=== PATIENT | male | born 1975 | race Asian ===

== ENCOUNTER 2020-01-27 22:40 | Inpatient (IN) | payer MEDICAID, OTHER ==
[~2020-01-27] VITALS: Ht 180.3 cm; Wt 77.2 kg
[2020-01-27 23:29] LABS: Basophils # (auto) 0.1 10 ^3/uL (0-0.2); Basophils % (auto) 0.8 % (0.0-2.0); Eosinophils # (auto) 0.2 10 ^3/uL (0-0.8); Eosinophils % (auto) 1.3 % (0.0-7.0); Hematocrit 50.5 % (41.0-53.0); Hemoglobin 16.4 g/dL (13.5-17.5); Lymphocytes # (auto) 3.5 10 ^3/uL (0.4-5.4); Lymphocytes % (auto) 29.8 % (10.0-50.0); Mean Corpuscular Hemoglobin 30.3 pg (28.0-32.0); Mean Corpuscular Hgb Conc. 32.6 g/dL (32.0-36.0); Monocytes # (auto) 0.5 10 ^3/uL (0-1.3); Monocytes % (auto) 4.6 % (0.0-12.0); Neutrophils # (auto) 7.6 10 ^3/uL (1.6-8.6); Neutrophils % (auto) 63.5 % (37.0-80.0); Platelet Count (auto) 264 10^3/uL (140-450); Red Blood Cells 5.43 10^6/uL (4.5-5.90); Red Cell Distribution Width 14.5 % (11.8-14.3); White Blood Cell 11.9 10^3/uL (4.4-10.8)
[2020-01-27] MEDS ORDERED: DIGOXIN (250MCG/ML) 2 ML AMPULE IV ONE (23:30)
[2020-01-27 23:45] LABS: INR 0.93 (0.9-1.15); Partial Thromboplastin Time 22.8 sec (23.64-32.05)
[2020-01-27 23:49] LABS: Alanine Aminotransferase 31 U/L (16-61); Albumin 3.6 g/dL (3.4-5.0); Anion Gap 6 (5-15); Aspartate Aminotransferase 13 U/L (15-37); BUN/Creatinine Ratio 15.7; Blood Urea Nitrogen 17 mg/dL (7-18); Calcium 8.6 mg/dL (8.5-10.1); Carbon Dioxide 26 mmol/L (21-32); Chloride 109 mmol/L (98-107); GFR African American 96 mL/min; GFR Non-African American 79 mL/min; Glucose 156 mg/dL (74-106); Potassium 3.1 mmol/L (3.5-5.1); Sodium 141 mmol/L (136-145)
[2020-01-27 23:53] LABS: Alkaline Phosphatase 81 U/L (45-117); Bilirubin, Total 0.3 mg/dL (0.2-1.0); Total Protein 7.1 g/dL (6.4-8.2)
[2020-01-28] MEDS ORDERED: cloNIDine HCL 0.1 MG TAB PO ONE (00:15)
[2020-01-28] MEDS ORDERED: MORPHINE SULF INJ 2 MG/ML SYRINGE 1ML IV PRN (03:30)
[2020-01-28] MEDS ORDERED: DEXTROSE (50%) 50ML SYRG IV PRN (03:30)
[2020-01-28] MEDS ORDERED: ONDANSETRON HCL 4 MG/2 ML VIAL IV PRN (03:30)
[2020-01-28] MEDS ORDERED: NITROGLYCERIN 0.4 MG SL TAB SL PRN ×2 (03:30)
[2020-01-28] MEDS ORDERED: ACETAMINOPHEN 325 MG TAB PO PRN (03:30)
[2020-01-28] MEDS ORDERED: MORPHINE SULFATE 4 MG/ML SYR/VIAL IV PRN (03:30)
[2020-01-28] MEDS: InsuLIN REG 1unit/0.01ml Soln (100units/ml) SC SCH ×3 (04:00→12:00)
[2020-01-28] MEDS ORDERED: ENOXAPARIN SOD 80 MG/0.8ML SYRINGE SC SCH ×2 (04:00→16:00)
[2020-01-28] MEDS: POTASSIUM CHL 20MEQ/100ML 100 ML IV SCH ×2 (04:18→05:11)
[2020-01-28] MEDS: ACCU-CHEK COMFORT CURVE STRIP VI SCH ×3 (04:27→12:46)
[2020-01-28] MEDS: SODIUM CHLORIDE 0.9% 1,000 ML IV SCH ×2 (04:28→16:18)
[2020-01-28 04:35] VITALS: BP 120/83
--- NOTE | 2020-01-28 04:35 | NUR ---
Telemetry admit from ER LUCIANA WILSON admitted to Telemetry unit, oriented to MILVIA ROBLES, RN primary RN, unit, room, bed, and unit policies regarding patient care and visiting hours. Patient now on continuous telemetry monitoring, tele box # 70 and telemetry reading on arrival to unit is sinus rhythm at 70 beats per minute. Patient placed on bedside oxygen at 5 liters via nasal cannula, weighed by bedscale and encouraged to call if they need something. All questions and concerns addressed, patient verbalized understanding. Bed in lowest locked position, side rails up x2, call light within reach. Will round every hour and as needed and continue to monitor. Patient denying chest pain at this time, instructed to call nursing staff if chest pain reoccurs, patient verbalized understanding. Will continue to monitor.
[2020-01-28 05:00] VITALS: BP 120/83
[2020-01-28] MEDS: cloNIDine HCL 0.1 MG TAB PO SCH ×4 (05:11→22:50)
--- NOTE | 2020-01-28 07:15 | NUR ---
Closing Note Patient lying in bed, eyes closed, respirations even and unlabored, appears asleep. Patient awakens to name and touch. Bed in lowest locked position, side rails up x2, call light within reach. No s/s of distress. Care endorsed to dayshift RN.
--- NOTE | 2020-01-28 07:17 | NUR ---
Opening Shift Note: Assumed care of patient, awake and alert. No S/S of distress/SOB or pain. Bed in lowest locked position, side rails up x 2, call light within reach. Patient instructed on POC and to call for assist PRN, will continue to monitor for changes Q1hr and PRN.
[2020-01-28 09:00] VITALS: BP 117/72
[2020-01-28 09:31] LABS: Basophils # (auto) 0.1 10 ^3/uL (0-0.2); Basophils % (auto) 0.6 % (0.0-2.0); Eosinophils # (auto) 0.1 10 ^3/uL (0-0.8); Eosinophils % (auto) 0.7 % (0.0-7.0); Hematocrit 45.9 % (41.0-53.0); Hemoglobin 15.1 g/dL (13.5-17.5); Lymphocytes # (auto) 2.1 10 ^3/uL (0.4-5.4); Lymphocytes % (auto) 21.3 % (10.0-50.0); Mean Corpuscular Hemoglobin 30.7 pg (28.0-32.0); Mean Corpuscular Hgb Conc. 32.9 g/dL (32.0-36.0); Mean Corpuscular Volume 93.3 fL (80.0-100.0); Monocytes # (auto) 0.5 10 ^3/uL (0-1.3); Neutrophils % (auto) 72.4 % (37.0-80.0); Platelet Count (auto) 233 10^3/uL (140-450); Red Blood Cells 4.92 10^6/uL (4.5-5.90); Red Cell Distribution Width 14.4 % (11.8-14.3); White Blood Cell 9.7 10^3/uL (4.4-10.8)
[2020-01-28 09:53] LABS: Calcium 7.9 mg/dL (8.5-10.1); Potassium 4.1 mmol/L (3.5-5.1)
[2020-01-28] MEDS: CLOPIDOGREL BISULFATE 75 MG TAB PO SCH (09:58)
[2020-01-28 09:59] LABS: BUN/Creatinine Ratio 21.2
[2020-01-28] MEDS: LISINOPRIL 20 MG TAB PO SCH (09:59)
[2020-01-28] MEDS: CARVEDILOL 3.125 MG TAB PO SCH ×2 (09:59→22:50)
[2020-01-28] MEDS: DOCUSATE SOD 100 MG CAP PO SCH (10:00)
[2020-01-28] MEDS: ASPirin 81 mg TAB PO SCH (10:01)
--- NOTE | 2020-01-28 10:01 | NUR ---
CRITICAL LAB Critical trop- 4.84. Dr. Terrazas notified. New orders received, read back and verified.
[2020-01-28] MEDS ORDERED: ENOXAPARIN SOD 100 MG/1 ML SYRINGE SC ONE (10:15)
--- NOTE | 2020-01-28 10:18 | NUR ---
Patient resting in bed. No S/S of distress, SOB or pain at this time. Will continue to monitor.
--- NOTE | 2020-01-28 11:17 | NUR ---
DR. LEWIS: DR. JOHNSON AT BEDSIDE. DISCUSSED POC WITH PATIENT. PATIENT VERBALLY AGREED.
--- NOTE | 2020-01-28 12:12 | NUR ---
PER DR JOHNSON ORDERS EKG PERFORMED. READ BY DR JOHNSON. PATIENT TOLERATED WELL, NO PAIN AT THIS TIME. WILL CONTINUE TO MONITOR.
[2020-01-28 12:35] VITALS: BP 123/82
--- NOTE | 2020-01-28 12:55 | NUR ---
PATIENT PROVIDED SPECIMEN CUP FOR URINE SAMPLE
--- NOTE | 2020-01-28 13:15 | NUR ---
IV FLUIDS PATIENT ASKED TO BE UNHOOKED FROM FLUIDS AT THIS TIME.
--- NOTE | 2020-01-28 15:34 | NUR ---
CRITICAL LAB: - 6.13. DR. JOHNSON AWARE. DR. GIL AWARE. WILL CONTINUE TO MONITOR.
--- NOTE | 2020-01-28 15:42 | NUR ---
PAIN PATIENT STATES NO PAIN AT THIS TIME.
[2020-01-28 17:00] VITALS: BP_SYST 123; BP_SYST 130; BP_DIAS 75; BP_DIAS 82
--- NOTE | 2020-01-28 18:08 | NUR ---
URINE SAMPLE COLLECTED AND SENT TO LAB.
--- NOTE | 2020-01-28 19:15 | NUR ---
Opening Shift Note Assumed care of patient, awake and alert. No S/S of distress/SOB or pain. Bed in lowest locked position, side rails up 2, call light within reach. Instructed on POC and to call for assist PRN, will continue to monitor for changes Q1hr and PRN. Addendum: 01/29/20 at 0017 by MILVIA ROBLES RN RN CORRECTION: Time of note 19:21.
--- NOTE | 2020-01-28 19:21 | NUR ---
CLOSING NOTE: PATIENT RESTING IN BED. NO S/S OF DISTRESS, SOB, OR PAIN AT THIS TIME. CARE ENDORSED TO NOC RN.
[2020-01-28 22:00] VITALS: BP 140/93
--- NOTE | 2020-01-28 22:47 | NUR ---
Critical Troponin, 4.310, trending down. Per Dr. Terrazas's notes pigment and lacquer mixer Dr. Roberts aware of patient's critical tropnins. Will page release of information clerk hospitalist at specified time and in form release of information clerk MD.
[2020-01-28] MEDS: ATORVASTATIN 20 MG TAB PO SCH (22:50)
[2020-01-28] MEDS: ENOXAPARIN SOD 80 MG/0.8ML SYRINGE SC SCH (22:51)
[2020-01-29] VITALS (23 sets, daily range): BP systolic 113–153; BP diastolic 73–99
--- NOTE | 2020-01-29 | NUR ---
ground operations superintendent hospitalist paged for previously noted critical troponin level and for patient's request for nicotine patch. Awaiting call back at this time.
--- NOTE | 2020-01-29 00:28 | NUR ---
Return page from contract writer hospitalist Dr. Vinod Campos MD at this time, no new orders at this time. Will continue to monitor patient.
[2020-01-29 03:46] LABS: Alcohol, Urine < 3.0 mg/dL (0-5); Amphetamine Screen, Urine NEGATIVE (NEGATIVE); Barbiturate Scree,Urine NEGATIVE (NEGATIVE); Benzodiazephine Screen, Urine NEGATIVE (NEGATIVE); Cannabinoid Screen, Urine NEGATIVE (NEGATIVE); Cocaine Screen, Urine NEGATIVE (NEGATIVE); Opiate Scree,Urine NEGATIVE (NEGATIVE); Phencyclidine Screen, Urine NEGATIVE (NEGATIVE)
[2020-01-29] MEDS: cloNIDine HCL 0.1 MG TAB PO SCH ×4 (06:04→22:00)
[2020-01-29] MEDS: SODIUM CHLORIDE 0.9% 1,000 ML IV SCH ×2 (06:05→20:06)
--- NOTE | 2020-01-29 07:05 | NUR ---
Opening Shift Note: Assumed care of patient, awake and alert. No S/S of distress/SOB. Pain assessment 0/10. Side rails up x2, call light within reach, call light within reach. Patient instructed on POC and to call for assist PRN, will continue to monitor for changes Q1hr and PRN.
[2020-01-29] MEDS: ASPirin 81 mg TAB PO SCH (09:40)
[2020-01-29] MEDS: CLOPIDOGREL BISULFATE 75 MG TAB PO SCH (09:40)
[2020-01-29] MEDS: ENOXAPARIN SOD 80 MG/0.8ML SYRINGE SC SCH ×2 (09:40→21:39)
[2020-01-29] MEDS: LISINOPRIL 20 MG TAB PO SCH (09:41)
[2020-01-29] MEDS: CARVEDILOL 3.125 MG TAB PO SCH ×2 (09:41→21:40)
[2020-01-29] MEDS: DOCUSATE SOD 100 MG CAP PO SCH (09:41)
--- NOTE | 2020-01-29 10:34 | NUR ---
DR. LEWIS: DR. JOHNSON AT BEDSIDE. DISCUSSED POC WITH PATIENT. PATIENT VERBALLY AGREED. PATIENT MADE NPO AT THIS TIME.
[2020-01-29] MEDS ORDERED: ATOR20TA50 PO (11:53)
[2020-01-29] MEDS ORDERED: ASPI81CH43 PO (11:53)
--- NOTE | 2020-01-29 12:32 | NUR ---
Patient transported down to laborer golf course at this time. Patient is anxious, no S/S of SOB or pain at this time.
[2020-01-29] MEDS ORDERED: LIDOCAINE 2%HCL (LOCAL ANESTH.) INJ 20ML MDV ONE (12:47)
[2020-01-29] MEDS ORDERED: IOHEXOL 350 MG/ML 100ML IJ ONE ×2 (12:47→14:00)
[2020-01-29] MEDS ORDERED: MIDAZOLAM HCL 1MG/1ML-2 ML VIAL ONE (13:09)
[2020-01-29] MEDS ORDERED: fentaNYL CITRATE 100 MCG/2 ML VL ONE (13:09)
[2020-01-29] MEDS ORDERED: ANGIOMAX 250 MG VIAL IV ONE (13:09)
[2020-01-29] MEDS ORDERED: SODIUM CHL 0.9% 50 ML ONE (13:09)
[2020-01-29] MEDS ORDERED: METO25TA5 PO (13:50)
[2020-01-29] MEDS ORDERED: LISI-646 PO (13:50)
[2020-01-29] MEDS ORDERED: CLOPIDOGREL 300 MG TAB ONE (14:20)
[2020-01-29] MEDS ORDERED: hydrALAZINE HCL 20 MG/ML VL ONE (14:24)
[2020-01-29] MEDS ORDERED: NITROGLYCERIN 50MG/250ML 250 ML IV ONE (14:48)
[2020-01-29] MEDS ORDERED: cloNIDine HCL 0.1 MG TAB PO ONE (16:30)
[2020-01-29] MEDS ORDERED: NIFEdipine ER 30 MG TAB PO ONE (16:30)
[2020-01-29] MEDS ORDERED: NITROGLYCERIN 50MG/250ML 250 ML IV SCH (16:45)
--- NOTE | 2020-01-29 17:20 | NUR ---
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 RIGHT GROIN ACCESS WITH GAUZE AND TEGADERM DRESSING IN PLACE WITH NO BLEEDING AND SKIN AROUND DRESSING IS SOFT WITH NO S/S OF EDEMA. A/O X4. FOLLOWS SIMPLE COMMANDS. LUNGS CLEAR THROUGHOUT. O2 AT 2 L/M VIA NC WITH O2 SAT OF 100%. TELE SR 65. PT WITH C/O MIDSTERNAL CHEST PAIN. NON RADIATING, RATES 5/10. NITROGLYCERIN DRIP AT 5 MCG AND INCREASED TO 6 MCG. CONTINUE TO MONITOR PAIN LEVEL. USES URINAL TO VOID, NONE AT THIS TIME. PALPABLE PULSES TO ALL EXTREMITIES WITH NO EDEMA NOTED. CONTINUE TO MONITOR.
--- NOTE | 2020-01-29 17:20 | NUR ---
PT HAS ONE TIME ORDERS FOR PROCARDIA XL AND CLONIDINE, WERE HELD BY PATROL DRIVER RN, LUCIAN, PT VAGALED DOWN EARLIER. WILL CONTINUE TO MONITOR.
--- NOTE | 2020-01-29 17:51 | NUR ---
REPORT GIVEN TO CABIN OUTFITTER.
--- NOTE | 2020-01-29 18:15 | NUR ---
TITRATING NITROGLYCERIN DRIP FOR PAIN RELIEF. CHEST PAIN CURRENTLY 1/10 FOR PAIN UNDER BOTH ARMS AT CHEST LEVEL.
--- NOTE | 2020-01-29 19:32 | NUR ---
REPORT REPORT GIVEN TO AUDREY GIMENEZ RN.
--- NOTE | 2020-01-29 20:35 | NUR ---
no c/o pain this time.on nitro drip at 7mcg/ min
[2020-01-29] MEDS: ATORVASTATIN 20 MG TAB PO SCH (21:39)
--- NOTE | 2020-01-29 23:40 | NUR ---
BP is 87/47..nitrodrip was discontinued
[2020-01-30] VITALS (15 sets, daily range): BP systolic 90–131; BP diastolic 7–85
[2020-01-30] MEDS: cloNIDine HCL 0.1 MG TAB PO SCH ×2 (06:00)
[2020-01-30] MEDS: SODIUM CHLORIDE 0.9% 1,000 ML IV SCH (06:08)
--- NOTE | 2020-01-30 06:19 | NUR ---
refused bath this am , he said its cold
--- NOTE | 2020-01-30 07:30 | NUR ---
REPORT REPORT RECEIVED FROM AMMY RNAUDREY. BEDSIDE CHECK DONE. PT ASLEEP WITH RESPIRATIONS EVEN AND UNLABORED. VSS. CONTINUE TO MONITOR.
--- NOTE | 2020-01-30 08:10 | NUR ---
ASSESSMENT PT AWAKE AND A/O X4. ABLE TO REPOSITION SELF IN BED. FOLLOWS SIMPLE COMMANDS. LUNGS CLEAR THROUGHOUT. PT ON ROOM AIR WITH O2 SAT OF 99%. TELE SB 54. PALPABLE PULSES TO ALL EXTREMITIES. RIGHT FEMORAL ANGIOGRAM SITE WITH GAUZE AND TEGADERM DRESSING. AREA IS SOFT TO THE TOUCH WITH NO BLEEDING AND SLIGHT BRUISE NOTED. SKIN IS CLEAR OTHERWISE. DENIES ANY PAIN OR SOB. ABD SOFT WITH + BOWEL SOUNDS. ASSISTED UP TO THE TOILET WHERE PT VOIDED INTO THE TOILET. PT BACK TO BED AND SERVED BREAKFAST.CONTINUE TO MONITOR,
[2020-01-30] MEDS ORDERED: NIFEdipine ER 30 MG TAB PO SCH (10:00)
[2020-01-30] MEDS: DOCUSATE SOD 100 MG CAP PO SCH (10:00)
[2020-01-30] MEDS: ENOXAPARIN SOD 80 MG/0.8ML SYRINGE SC SCH (10:15)
--- NOTE | 2020-01-30 10:15 | NUR ---
PT GIVEN SCHEDULED MEDS. DENIES ANY PAIN
[2020-01-30] MEDS: LISINOPRIL 20 MG TAB PO SCH (10:16)
[2020-01-30] MEDS: ASPirin 81 mg TAB PO SCH (10:16)
[2020-01-30] MEDS: CLOPIDOGREL BISULFATE 75 MG TAB PO SCH (10:16)
[2020-01-30 10:32] LABS: Basophils # (auto) 0.1 10 ^3/uL (0-0.2); Basophils % (auto) 1.2 % (0.0-2.0); Eosinophils # (auto) 0.1 10 ^3/uL (0-0.8); Eosinophils % (auto) 0.5 % (0.0-7.0); Hematocrit 44.2 % (41.0-53.0); Hemoglobin 14.8 g/dL (13.5-17.5); Mean Corpuscular Hemoglobin 30.9 pg (28.0-32.0); Mean Corpuscular Hgb Conc. 33.6 g/dL (32.0-36.0); Mean Corpuscular Volume 92.1 fL (80.0-100.0); Monocytes # (auto) 0.5 10 ^3/uL (0-1.3); Monocytes % (auto) 4.9 % (0.0-12.0); Neutrophils # (auto) 7.9 10 ^3/uL (1.6-8.6); Neutrophils % (auto) 74.4 % (37.0-80.0); Platelet Count (auto) 235 10^3/uL (140-450); Red Blood Cells 4.79 10^6/uL (4.5-5.90); Red Cell Distribution Width 14.3 % (11.8-14.3); White Blood Cell 10.7 10^3/uL (4.4-10.8)
[2020-01-30 10:52] LABS: Calcium 8.2 mg/dL (8.5-10.1); Potassium 3.6 mmol/L (3.5-5.1)
[2020-01-30 10:57] LABS: Albumin 2.9 g/dL (3.4-5.0); BUN/Creatinine Ratio 16.9; Bilirubin, Total 0.4 mg/dL (0.2-1.0); Total Protein 5.6 g/dL (6.4-8.2)
[2020-01-30] MEDS ORDERED: NITR0.4S29 SL (13:48)
[2020-01-30] MEDS ORDERED: NIFE1TAB31 PO (13:48)
[2020-01-30] MEDS ORDERED: CLOP75TA28 PO (13:48)
--- NOTE | 2020-01-30 14:10 | NUR ---
MD VISIT PT SEEN AND EXAMINED BY DR JOHNSON. SHE SPOKE WITH DR GIL WHO OKAYED THE PT FOR DISCHARGE. DR JOHNSON SENT THE PRESCRIPTIONS TO [facility] TO BE FILLED AND GIVEN TO PT AT DISCHARGE.
[2020-01-30] MEDS ORDERED: PANT40TA2 PO (14:16)
[2020-01-30] MEDS ORDERED: PANTOPRAZOLE 40 MG TAB PO ONE (14:30)
[2020-01-30] MEDS ORDERED: MORPHINE SULF INJ 2 MG/ML SYRINGE 1ML IV PRN (14:45)
--- NOTE | 2020-01-30 16:50 | NUR ---
DISCHARGE INSTRUCTIONS REVIEWED ALL DISCHARGE INSTRUCTIONS WITH PT. HE EXPRESSED UNDERSTANDING.
--- NOTE | 2020-01-30 17:05 | NUR ---
Discharge Pt has been given all discharge instructions and I answered all questions. He expressed understanding. Escorted pt to [facility] in the hospital lobby. There he picked up his prescriptions. Pharmacist earlier called and stated that they are submitting a TAR for the ordered aspirin and atorvastatin, and it could take as long as 1 -7 days for them to be approved. Called and notified Dr Terrazas and she told me to contact the inpatient pharmacy and have them dispense 10 tablets of Atorvastatin and have pt purchase Aspirin 81 mg over the counter. Spoke with [facility] pharmacist and he stated the pharmacy is not allowed to do that. He suggested I contact [facility]. The pharmacist at [facility] stated that she would be able to dispense the pt 4 tablets of Atorvastatin. Upon arriving at [facility] , pt was given his ordered meds, he purchased a bottle of Aspirin 81 mg tablets and was given 4 tablets of Atorvastatin. They verified his contact phone number and stated that they would contact him regarding the remainder of his Atorvastatin once it is approved by his insurance. Pt waiting in hospital lobby with his friend, for his ride.
== END 2020-01-30 17:08 | disposition home or self-care (01) | DRG 174 ==
LOC: ER 22:44 → TELE-WESTW 22:45 → ICU WEST 01-29 17:21
PROVIDERS: ADMIT Hospitalist; ATTEND Internal Medicine
PROC: 027034Z Dilation of Coronary Artery, One Artery with Drug-eluting Intraluminal Device, Percutaneous Approach (ICD-10-PCS; principal; 2020-01-29)
PROC: 4A023N7 Measurement of Cardiac Sampling and Pressure, Left Heart, Percutaneous Approach (ICD-10-PCS; 2020-01-29)
PROC: B2111ZZ Fluoroscopy of Multiple Coronary Arteries using Low Osmolar Contrast (ICD-10-PCS; 2020-01-29)
PROC: B2151ZZ Fluoroscopy of Left Heart using Low Osmolar Contrast (ICD-10-PCS; 2020-01-29)
DX: I21.4 Non-ST elevation (NSTEMI) myocardial infarction (principal); I48.91 Unspecified atrial fibrillation; I16.0 Hypertensive urgency; E78.5 Hyperlipidemia, unspecified; R00.1 Bradycardia, unspecified; Z72.0 Tobacco use
CPT/HCPCS: 36415; 70450; 71045; 80048; 80053; 80061; 80307; 82962; 83036; 83880; 84484; 85025; 85610; 85730; 86850; 86900; 86901; 87081; 92928; 93005; 93306; 93458; 96372; 96374; 99152; 99153; C1874; G0378; J2250; J2405; J3480

== ENCOUNTER 2020-10-14 07:43 | Inpatient (IN) | payer MEDICAID ==
[~2020-10-14] VITALS: Ht 182.9 cm; Wt 82.1 kg
[~2020-10-14 07:43] MED LIST: ASPI81CH43 PO; ATOR20TA50 PO; CLOP75TA28 PO; LISI-646 PO; NIFE1TAB31 PO; NITR0.4S29 SL; PANT40TA2 PO
[2020-10-14 08:39] LABS: Urine Bacteria MOD /hpf (None Seen); Urine Blood 3+ /uL (Negative); Urine Mucus FEW (None Seen); Urine Specific Gravity 1.031 (1.001-1.035); Urine WBC 6 /hpf (0 - 3)
[2020-10-14 10:16] LABS: Basophils # (auto) 0.1 10 ^3/uL (0-0.2); Basophils % (auto) 0.3 % (0.0-2.0); Eosinophils # (auto) 0 10 ^3/uL (0-0.8); Eosinophils % (auto) 0.1 % (0.0-7.0); Hematocrit 50.5 % (41.0-53.0); Hemoglobin 16.6 g/dL (13.5-17.5); Lymphocytes # (auto) 1.2 10 ^3/uL (0.4-5.4); Lymphocytes % (auto) 7.3 % (10.0-50.0); Mean Corpuscular Hemoglobin 30.4 pg (28.0-32.0); Mean Corpuscular Hgb Conc. 32.9 g/dL (32.0-36.0); Mean Corpuscular Volume 92.4 fL (80.0-100.0); Monocytes # (auto) 0.5 10 ^3/uL (0-1.3); Monocytes % (auto) 2.8 % (0.0-12.0); Neutrophils # (auto) 15.3 10 ^3/uL (1.6-8.6); Neutrophils % (auto) 89.5 % (37.0-80.0); Nucleated Red Blood Cells % 0.1 %; Platelet Count (auto) 315 10^3/uL (140-450); Red Blood Cells 5.46 10^6/uL (4.5-5.90); Red Cell Distribution Width 13.7 % (11.8-14.3); White Blood Cell 17.1 10^3/uL (4.4-10.8)
[2020-10-14 12:17] LABS: Albumin 3.8 g/dL (3.4-5.0); BUN/Creatinine Ratio 23.2; Bilirubin, Total 0.3 mg/dL (0.2-1.0); Calcium 8.6 mg/dL (8.5-10.1); Potassium 3.5 mmol/L (3.5-5.1); Total Protein 7.2 g/dL (6.4-8.2)
[2020-10-14] MEDS ORDERED: ONDANSETRON HCL 4 MG/2 ML VIAL IV ONE (13:15)
[2020-10-14] MEDS ORDERED: KETOROLAC TROMETH 30 MG/ML 1ML VIAL IV ONE (13:15)
[2020-10-14] MEDS ORDERED: TAMSULOSIN HYDROCHLORIDE 0.4 MG CAP PO ONE (13:15)
[2020-10-14] MEDS ORDERED: SODIUM CHLORIDE 0.9% 1,000 ML IV ONE ×2 (13:15)
[2020-10-14] MEDS ORDERED: DOCUSATE SOD 100 MG CAP PO PRN (15:45)
[2020-10-14] MEDS ORDERED: MORPHINE SULF INJ 2 MG/ML SYRINGE 1ML IV PRN (15:45)
[2020-10-14] MEDS ORDERED: ACETAMINOPHEN 325 MG TAB PO PRN (15:45)
[2020-10-14] MEDS ORDERED: NIFE1TAB30 PO (16:45)
[2020-10-14] MEDS ORDERED: MET25T PO (16:45)
[2020-10-14] MEDS: HYDROcodone-ACET 5/325MG TAB PO PRN (18:56)
[2020-10-14 20:00] VITALS: BP 135/85
[2020-10-14 21:36] VITALS: BP 135/85
[2020-10-15] MEDS: METOPROLOL TARTRATE 25 MG TAB PO SCH ×3 (01:56→21:46)
[2020-10-15] MEDS: levoFLOXacin 500MG 100 ML IV SCH ×2 (01:56→09:29)
[2020-10-15] MEDS: SODIUM CHLORIDE 0.9% 1,000 ML IV SCH ×3 (01:56→21:45)
[2020-10-15 05:00] VITALS: BP 150/99
[2020-10-15 06:15] LABS: Basophils # (auto) 0.1 10 ^3/uL (0-0.2); Basophils % (auto) 0.4 % (0.0-2.0); Eosinophils # (auto) 0 10 ^3/uL (0-0.8); Eosinophils % (auto) 0.2 % (0.0-7.0); Hematocrit 46.4 % (41.0-53.0); Hemoglobin 15.2 g/dL (13.5-17.5); Lymphocytes # (auto) 1.1 10 ^3/uL (0.4-5.4); Mean Corpuscular Hemoglobin 29.9 pg (28.0-32.0); Mean Corpuscular Hgb Conc. 32.7 g/dL (32.0-36.0); Mean Corpuscular Volume 91.5 fL (80.0-100.0); Monocytes % (auto) 7.1 % (0.0-12.0); Neutrophils # (auto) 11.9 10 ^3/uL (1.6-8.6); Neutrophils % (auto) 84.3 % (37.0-80.0); Platelet Count (auto) 279 10^3/uL (140-450); Red Blood Cells 5.07 10^6/uL (4.5-5.90); Red Cell Distribution Width 13.9 % (11.8-14.3); White Blood Cell 14.1 10^3/uL (4.4-10.8)
[2020-10-15] MEDS: HCTZ 25 MG TAB PO SCH ×2 (06:51→09:29)
[2020-10-15 07:06] LABS: Potassium 3.3 mmol/L (3.5-5.1)
[2020-10-15 07:20] LABS: BUN/Creatinine Ratio 17.4; Calcium 8.2 mg/dL (8.5-10.1)
[2020-10-15 08:00] VITALS: BP 139/98
[2020-10-15] MEDS: ASPirin 81 mg TAB PO SCH (09:29)
[2020-10-15] MEDS: CLOPIDOGREL BISULFATE 75 MG TAB PO SCH (09:30)
[2020-10-15] MEDS: NIFEdipine ER 30 MG TAB PO SCH (09:31)
[2020-10-15] MEDS: PANTOPRAZOLE 40 MG TAB PO SCH (09:41)
[2020-10-15 12:00] VITALS: BP 136/99
[2020-10-15] MEDS ORDERED: SODIUM CHLORIDE 0.9% 1,000 ML IV ONE ×2 (13:45→17:45)
[2020-10-15 16:59] VITALS: BP 135/98
[2020-10-15] MEDS ORDERED: POTASSIUM EFFERVESENT TAB 25 MEQ PO ONE (17:45)
[2020-10-15 18:29] LABS: BUN/Creatinine Ratio 16.5; Calcium 8.5 mg/dL (8.5-10.1); Potassium 3.9 mmol/L (3.5-5.1)
[2020-10-15] MEDS: ATORVASTATIN 20 MG TAB PO SCH (21:45)
[2020-10-15 22:00] VITALS: BP 140/93
[2020-10-16] MEDS: HYDROcodone-ACET 5/325MG TAB PO PRN ×3 (03:03→21:45)
[2020-10-16] MEDS: hydrALAZINE HCL 20 MG/ML VL IV PRN ×2 (04:39→09:41)
[2020-10-16 05:00] VITALS: BP 155/105
[2020-10-16 06:39] VITALS: BP 138/91
[2020-10-16] MEDS: SODIUM CHLORIDE 0.9% 1,000 ML IV SCH ×4 (07:00→21:43)
[2020-10-16 07:10] LABS: Basophils # (auto) 0 10 ^3/uL (0-0.2); Basophils % (auto) 0.2 % (0.0-2.0); Eosinophils # (auto) 0 10 ^3/uL (0-0.8); Eosinophils % (auto) 0.3 % (0.0-7.0); Hematocrit 47.7 % (41.0-53.0); Hemoglobin 15.5 g/dL (13.5-17.5); Lymphocytes # (auto) 1.1 10 ^3/uL (0.4-5.4); Lymphocytes % (auto) 8.8 % (10.0-50.0); Mean Corpuscular Hemoglobin 29.9 pg (28.0-32.0); Mean Corpuscular Hgb Conc. 32.5 g/dL (32.0-36.0); Mean Corpuscular Volume 91.9 fL (80.0-100.0); Monocytes # (auto) 0.9 10 ^3/uL (0-1.3); Monocytes % (auto) 7.4 % (0.0-12.0); Neutrophils # (auto) 10.4 10 ^3/uL (1.6-8.6); Neutrophils % (auto) 83.3 % (37.0-80.0); Platelet Count (auto) 276 10^3/uL (140-450); Red Blood Cells 5.19 10^6/uL (4.5-5.90); Red Cell Distribution Width 13.9 % (11.8-14.3); White Blood Cell 12.5 10^3/uL (4.4-10.8)
[2020-10-16 07:25] LABS: Calcium 8.7 mg/dL (8.5-10.1); Magnesium 2.2 mg/dL (1.6-2.6); Potassium 3.6 mmol/L (3.5-5.1)
[2020-10-16 07:27] LABS: BUN/Creatinine Ratio 17.4
[2020-10-16 07:33] LABS: INR 0.95 (0.9-1.15); Partial Thromboplastin Time 28.2 sec (23.0-31.2)
[2020-10-16 09:00] VITALS: BP 152/111
[2020-10-16] MEDS ORDERED: TAMSULOSIN HYDROCHLORIDE 0.4 MG CAP PO ONE (09:00)
[2020-10-16] MEDS: ASPirin 81 mg TAB PO SCH (09:39)
[2020-10-16] MEDS: NIFEdipine ER 30 MG TAB PO SCH (09:40)
[2020-10-16] MEDS: METOPROLOL TARTRATE 25 MG TAB PO SCH ×2 (09:40→21:44)
[2020-10-16] MEDS: PANTOPRAZOLE 40 MG TAB PO SCH (09:40)
[2020-10-16] MEDS: CLOPIDOGREL BISULFATE 75 MG TAB PO SCH (09:40)
[2020-10-16] MEDS: levoFLOXacin 500MG 100 ML IV SCH (09:41)
[2020-10-16 13:00] VITALS: BP 144/88
[2020-10-16 17:00] VITALS: BP 134/91
[2020-10-16] MEDS ORDERED: TAMSULOSIN HYDROCHLORIDE 0.4 MG CAP PO SCH (18:00)
[2020-10-16] MEDS: ATORVASTATIN 20 MG TAB PO SCH (21:43)
[2020-10-16 22:00] VITALS: BP 117/80
[2020-10-17] MEDS: SODIUM CHLORIDE 0.9% 1,000 ML IV SCH ×4 (02:36→15:00)
[2020-10-17 05:00] VITALS: BP 147/98
[2020-10-17 09:00] VITALS: BP 141/101
[2020-10-17] MEDS: levoFLOXacin 500MG 100 ML IV SCH (10:13)
[2020-10-17] MEDS: NIFEdipine ER 30 MG TAB PO SCH (10:13)
[2020-10-17] MEDS: METOPROLOL TARTRATE 25 MG TAB PO SCH (10:13)
[2020-10-17] MEDS: ASPirin 81 mg TAB PO SCH (10:14)
[2020-10-17] MEDS: CLOPIDOGREL BISULFATE 75 MG TAB PO SCH (10:14)
[2020-10-17] MEDS: PANTOPRAZOLE 40 MG TAB PO SCH (10:14)
[2020-10-17 10:37] LABS: Basophils # (auto) 0.1 10 ^3/uL (0-0.2); Basophils % (auto) 1.2 % (0.0-2.0); Eosinophils # (auto) 0.1 10 ^3/uL (0-0.8); Eosinophils % (auto) 0.4 % (0.0-7.0); Hematocrit 46.9 % (41.0-53.0); Hemoglobin 15.5 g/dL (13.5-17.5); Lymphocytes # (auto) 1.8 10 ^3/uL (0.4-5.4); Lymphocytes % (auto) 14.4 % (10.0-50.0); Mean Corpuscular Hemoglobin 30.2 pg (28.0-32.0); Mean Corpuscular Volume 91.4 fL (80.0-100.0); Monocytes % (auto) 7.8 % (0.0-12.0); Neutrophils # (auto) 9.7 10 ^3/uL (1.6-8.6); Neutrophils % (auto) 76.2 % (37.0-80.0); Platelet Count (auto) 275 10^3/uL (140-450); Red Blood Cells 5.13 10^6/uL (4.5-5.90); Red Cell Distribution Width 13.8 % (11.8-14.3); White Blood Cell 12.7 10^3/uL (4.4-10.8)
[2020-10-17 10:52] LABS: Albumin 3.2 g/dL (3.4-5.0); Calcium 8.4 mg/dL (8.5-10.1); Potassium 3.6 mmol/L (3.5-5.1)
[2020-10-17 11:02] LABS: BUN/Creatinine Ratio 10.8; Bilirubin, Total 0.8 mg/dL (0.2-1.0); Total Protein 6.5 g/dL (6.4-8.2)
[2020-10-17 13:00] VITALS: BP 137/94
[2020-10-17] MEDS ORDERED: DOCU-94 PO (15:30)
[2020-10-17] MEDS ORDERED: LEVO500T21 PO (15:30)
[2020-10-17] MEDS ORDERED: POLYETHYLENE GLYCOL 17 GM PWDR PO ONE (15:30)
[2020-10-17] MEDS ORDERED: TAM04C PO (15:30)
[2020-10-17] MEDS ORDERED: HYDR-4833 PO ×2 (15:30→15:33)
[2020-10-17] MEDS ORDERED: ACE325T PO (15:33)
[2020-10-17 16:09] VITALS: BP 137/94
[2020-10-17 16:38] VITALS: BP 119/83
== END 2020-10-17 17:39 | disposition home health service (06) | DRG 465 ==
LOC: ER 07:43 → OVERFLOW 15:39 → WEST WING 17:17
PROVIDERS: ADMIT Internal Medicine; ATTEND Internal Medicine
DX: N13.2 Hydronephrosis with renal and ureteral calculous obstruction (principal); N17.9 Acute kidney failure, unspecified; E78.5 Hyperlipidemia, unspecified; K21.9 Gastro-esophageal reflux disease without esophagitis; F17.210 Nicotine dependence, cigarettes, uncomplicated; E27.8 Other specified disorders of adrenal gland; I12.9 Hypertensive chronic kidney disease with stage 1 through stage 4 chronic kidney disease, or unspecified chronic kidney disease; I25.10 Atherosclerotic heart disease of native coronary artery without angina pectoris; K44.9 Diaphragmatic hernia without obstruction or gangrene; N18.2 Chronic kidney disease, stage 2 (mild); Z79.02 Long term (current) use of antithrombotics/antiplatelets; Z79.82 Long term (current) use of aspirin; Z79.899 Other long term (current) drug therapy; Z82.49 Family history of ischemic heart disease and other diseases of the circulatory system; Z86.73 Personal history of transient ischemic attack (TIA), and cerebral infarction without residual deficits
CPT/HCPCS: 36415; 74018; 74176; 76775; 80048; 80053; 81001; 83735; 85025; 85610; 85730; G0378; J1885; J1956

== ENCOUNTER 2020-10-18 14:38 | Emergency (ER) | payer MEDICAID ==
[~2020-10-18] VITALS: Ht 180.3 cm; Wt 81.6 kg
[~2020-10-18 14:38] MED LIST changes: +ACE325T PO; +DOCU-94 PO; +HYDR-4833 PO; +LEVO500T21 PO; +MET25T PO; +NIFE1TAB30 PO; -NIFE1TAB31 PO; +TAM04C PO
[2020-10-18 15:07] VITALS: BP 94/69
[2020-10-18] MEDS ORDERED: ACETAMINOPHEN/CODEINE#3 (300/30mg) TAB PO ONE (16:00)
== END 2020-10-18 20:53 | disposition left against medical advice (07) ==
LOC: ER 14:38
DX: N20.0 Calculus of kidney (principal); I10 Essential (primary) hypertension; Z76.0 Encounter for issue of repeat prescription

== ENCOUNTER → 2021-03-20 | Outpatient (CLI) | payer MEDICAID ==
[~2021-03-20] MED LIST changes: -ACE325T PO; +ACET325T10 PO; -LEVO500T21 PO; +LEVO500T31 PO; -LISI-646 PO; +LISI20TA28 PO
== END | disposition home or self-care (01) ==
LOC: XYW 08:03
PROVIDERS: ATTEND Internal Medicine
DX: I08.2 Rheumatic disorders of both aortic and tricuspid valves (principal); I25.119 Atherosclerotic heart disease of native coronary artery with unspecified angina pectoris
CPT/HCPCS: 93306

== ENCOUNTER 2021-09-22 20:39 | Emergency (ER) | payer MEDICAID ==
[~2021-09-22] VITALS: Ht 182.9 cm; Wt 74.8 kg
[2021-09-23] MEDS ORDERED: LIDOCAINE 1% HCL (LOCAL ANESTH.) INJ 20ML MDV IJ ONE (01:00)
[2021-09-23] MEDS ORDERED: TETANUS-DIPTH-ACEL PERTUSSIS 0.5ML SYR Tdap IM ONE (01:00)
[2021-09-23 01:30] VITALS: BP 120/87
== END 2021-09-23 03:21 | disposition home or self-care (01) ==
LOC: ER 20:42
DX: S01.112A Laceration without foreign body of left eyelid and periocular area, initial encounter (principal); I10 Essential (primary) hypertension; M54.2 Cervicalgia; W18.00XA Striking against unspecified object with subsequent fall, initial encounter; Y93.89 Activity, other specified; Y92.89 Other specified places as the place of occurrence of the external cause; Y99.8 Other external cause status
CPT/HCPCS: 12013; 70450; 70486; 72125; 99284; J2001

== ENCOUNTER 2021-11-18 21:31 | Emergency (ER) | payer MEDICAID ==
[~2021-11-18] VITALS: Ht 180.3 cm; Wt 83.9 kg
[2021-11-19] MEDS ORDERED: TETANUS-DIPTH-ACEL PERTUSSIS 0.5ML SYR Tdap IM ONE (00:45)
[2021-11-19] MEDS ORDERED: cefTRIAXone W LIDOCAINE 1 GM IM IM ONE (00:45)
[2021-11-19] MEDS ORDERED: cefTRIAXone SOD 1,000 MG VL ONE (02:24)
[2021-11-19 03:23] VITALS: BP 137/85
== END 2021-11-19 03:25 | disposition home or self-care (01) ==
LOC: ER 21:33
DX: S01.112A Laceration without foreign body of left eyelid and periocular area, initial encounter (principal); I10 Essential (primary) hypertension; W54.0XXA Bitten by dog, initial encounter; Y93.89 Activity, other specified; Y92.89 Other specified places as the place of occurrence of the external cause; Y99.8 Other external cause status
CPT/HCPCS: 70486; 96372; 99284; J0696; 90715